=== PATIENT | male | born 1935 | race Caucasian/White ===

== ENCOUNTER 2019-03-27 06:43 | Outpatient (CLI) | payer MEDICARE, OTHER | END 2019-03-27 23:59 | disposition home or self-care (01) | LOC: CVU 06:43 | PROVIDERS: ATTEND Internal Medicine Cardiovascular Disease | DX: I08.3 Combined rheumatic disorders of mitral, aortic and tricuspid valves (principal); I65.23 Occlusion and stenosis of bilateral carotid arteries; E78.5 Hyperlipidemia, unspecified; I10 Essential (primary) hypertension; I63.9 Cerebral infarction, unspecified | CPT/HCPCS: 93306; 93880 ==

== ENCOUNTER 2019-04-14 06:23 | Day surgery (SDC) | payer MEDICARE, OTHER ==
[~2019-04-14] VITALS: Ht 170.2 cm; Wt 102.7 kg
[2019-04-14] MEDS ORDERED: PANT40TA5 PO (07:30)
[2019-04-14] MEDS ORDERED: MULT-658 PO (07:30)
[2019-04-14] MEDS ORDERED: DOCU-180 PO (07:30)
[2019-04-14] MEDS ORDERED: METO50TA82 PO (07:30)
[2019-04-14] MEDS ORDERED: ACET-76 PO (07:30)
[2019-04-14] MEDS ORDERED: CLOP75TA52 PO (07:30)
[2019-04-14] MEDS ORDERED: FINA5TAB4 PO (07:30)
[2019-04-14] MEDS ORDERED: ATOR20TA37 PO (07:30)
[2019-04-14] MEDS ORDERED: LORA-247 PO (07:30)
[2019-04-14] MEDS ORDERED: [UNRECOGNIZED DRUG - CODE] PO (07:30)
[2019-04-14 07:34] VITALS: BP 170/94
[2019-04-14 07:58] LABS: BASOPHILS # (AUTO) 0.03 x10^3/uL (0-0.1); BASOPHILS % (AUTO) 1 % (0-1); EOSINOPHILS # (AUTO) 0.06 x10^3/uL (0-0.4); EOSINOPHILS % (AUTO) 1 % (1-7); LYMPHOCYTES # (AUTO) 1.15 x10^3/uL (1-3.4); LYMPHOCYTES % (AUTO) 16 % (22-44); MD NO; MEAN CORPUSCULAR HEMOGLOBIN 30.3 pg (27.5-34.5); MEAN CORPUSCULAR HGB CONC 33.3 g/dL (33.2-36.2); MEAN CORPUSCULAR VOLUME 90.8 fL (81-97); MEAN PLATELET VOLUME 8.6 fL (7.4-10.4); MONOCYTES # (AUTO) 0.58 x10^3/uL (0.2-0.8); MONOCYTES % (AUTO) 8 % (2-9); NEUTROPHILS # (AUTO) 5.55 x10^3/uL (1.8-6.8); NEUTROPHILS % (AUTO) 75 % (42-75); PLATELET COUNT 218 x10^3/uL (130-400); RED BLOOD COUNT 5.58 x10^6/uL (4.38-5.82); RED CELL DISTRIBUTION WIDTH 14.1 % (9.4-14.8)
[2019-04-14 08:09] LABS: ALANINE AMINOTRANSFERASE 24 U/L (12-78); ALBUMIN 3.8 g/dL (3.4-5.0); ANION GAP 7 mmol/L (5-15); CALCIUM 9.3 mg/dL (8.5-10.1); CHLORIDE 108 mmol/L (98-107); CREATININE 0.97 mg/dL (0.7-1.3)
[2019-04-14 08:12] LABS: ALKALINE PHOSPHATASE 83 U/L (45-117); BILIRUBIN,TOTAL 0.7 mg/dL (0.2-1.0); TOTAL PROTEIN 7.1 g/dL (6.4-8.2)
[2019-04-14] MEDS ORDERED: MIDAZOLAM 1 MG/ML, 5ML ONE (09:00)
[2019-04-14] MEDS ORDERED: FENTANYL PF 100 MCG/2ML ONE (09:01)
[2019-04-14] MEDS ORDERED: VERAPAMIL 2.5 MG/ML, 2ML ONE (09:01)
[2019-04-14] MEDS ORDERED: HEPARIN 1,000 UNITS/ML, 10ML ONE (09:02)
[2019-04-14] MEDS ORDERED: LIDOCAINE-MPF 1%, 5ML ONE (09:02)
[2019-04-14] MEDS ORDERED: MIDAZOLAM 1 MG/ML, 2ML ONE ×2 (09:03→09:55)
[2019-04-14] MEDS ORDERED: NITROGLYCERIN 5 MG/ML, 10ML ONE (09:19)
[2019-04-14] MEDS ORDERED: TICAGRELOR 90 MG TABLET ONE (09:42)
[2019-04-14] MEDS ORDERED: BIVALIRUDIN 250 MG ONE (09:42)
[2019-04-14] MEDS ORDERED: SODIUM CHLORIDE 0.9% 1,000 ML IV SCH ×2 (10:18→11:00)
== END 2019-04-14 14:16 | disposition home or self-care (01) ==
LOC: CACL 06:23
PROVIDERS: ATTEND Internal Medicine Cardiovascular Disease
DX: I25.10 Atherosclerotic heart disease of native coronary artery without angina pectoris (principal); I25.82 Chronic total occlusion of coronary artery; I25.84 Coronary atherosclerosis due to calcified coronary lesion; I10 Essential (primary) hypertension; I47.1 Supraventricular tachycardia; I35.0 Nonrheumatic aortic (valve) stenosis; E78.2 Mixed hyperlipidemia; E66.01 Morbid (severe) obesity due to excess calories; Z68.35 Body mass index [BMI] 35.0-35.9, adult; Z79.01 Long term (current) use of anticoagulants; Z79.02 Long term (current) use of antithrombotics/antiplatelets; Z79.899 Other long term (current) drug therapy; Z86.73 Personal history of transient ischemic attack (TIA), and cerebral infarction without residual deficits; Z87.891 Personal history of nicotine dependence
CPT/HCPCS: 36415; 80053; 85025; 92920; 93458; 99156; 99157; C1769; C1887; C1894; J0583; J1644; J2250; J3010; Q9967; 93454

== ENCOUNTER 2019-05-03 09:53 | Observation (INO) | payer MEDICARE, OTHER ==
[~2019-05-03] VITALS: Ht 170.2 cm; Wt 102.7 kg
[~2019-05-03 09:53] MED LIST: ACET-76 PO; ATOR20TA37 PO; CLOP75TA52 PO; DOCU-180 PO; FINA5TAB4 PO; LORA-247 PO; METO50TA82 PO; MULT-658 PO; PANT40TA5 PO; [UNRECOGNIZED DRUG - CODE] PO
[2019-05-03] MEDS ORDERED: SODIUM CHLORIDE 0.9% 1,000 ML IV SCH (10:27)
[2019-05-03 10:36] VITALS: BP 153/76
[2019-05-03 11:14] LABS: BASOPHILS # (AUTO) 0.07 x10^3/uL (0-0.1); BASOPHILS % (AUTO) 1 % (0-1); EOSINOPHILS # (AUTO) 0.08 x10^3/uL (0-0.4); EOSINOPHILS % (AUTO) 1 % (1-7); LYMPHOCYTES # (AUTO) 1.35 x10^3/uL (1-3.4); LYMPHOCYTES % (AUTO) 19 % (22-44); MD NO; MEAN CORPUSCULAR HEMOGLOBIN 30.7 pg (27.5-34.5); MEAN CORPUSCULAR HGB CONC 33.7 g/dL (33.2-36.2); MEAN CORPUSCULAR VOLUME 91.1 fL (81-97); MEAN PLATELET VOLUME 8.6 fL (7.4-10.4); MONOCYTES # (AUTO) 0.63 x10^3/uL (0.2-0.8); MONOCYTES % (AUTO) 9 % (2-9); NEUTROPHILS # (AUTO) 4.82 x10^3/uL (1.8-6.8); NEUTROPHILS % (AUTO) 69 % (42-75); PLATELET COUNT 212 x10^3/uL (130-400); RED BLOOD COUNT 5.18 x10^6/uL (4.38-5.82); RED CELL DISTRIBUTION WIDTH 14.2 % (9.4-14.8)
[2019-05-03 11:19] LABS: ANION GAP 5 mmol/L (5-15); CALCIUM 9.1 mg/dL (8.5-10.1); CHLORIDE 107 mmol/L (98-107); CREATININE 1.15 mg/dL (0.7-1.3)
[2019-05-03] MEDS ORDERED: FENTANYL PF 100 MCG/2ML ONE (12:08)
[2019-05-03] MEDS ORDERED: VERAPAMIL 2.5 MG/ML, 2ML ONE (12:08)
[2019-05-03] MEDS ORDERED: TICAGRELOR 90 MG TABLET ONE (12:08)
[2019-05-03] MEDS ORDERED: MIDAZOLAM 1 MG/ML, 5ML ONE (12:08)
[2019-05-03] MEDS ORDERED: BIVALIRUDIN 250 MG ONE (12:08)
[2019-05-03] MEDS ORDERED: LIDOCAINE-MPF 1%, 5ML ONE (12:09)
[2019-05-03] MEDS ORDERED: HEPARIN 1,000 UNITS/ML, 10ML ONE (12:09)
[2019-05-03] MEDS: SODIUM CHLORIDE 0.9% 1,000 ML IV SCH ×2 (13:57→21:57)
[2019-05-03 19:22] VITALS: BP 144/90
[2019-05-03 20:56] VITALS: BP 148/77
[2019-05-03] MEDS: METOPROLOL TARTRATE 50 MG TABLET PO SCH (20:58)
[2019-05-03] MEDS: DOCUSATE 100 MG CAPSULE PO SCH (20:58)
[2019-05-03] MEDS: ACETAMINOPHEN 500 MG TABLET PO SCH (20:59)
[2019-05-03] MEDS ORDERED: ATORVASTATIN 20 MG TABLET PO SCH (21:00)
[2019-05-04 01:53] VITALS: BP 142/80
[2019-05-04] MEDS: SODIUM CHLORIDE 0.9% 1,000 ML IV SCH (04:25)
[2019-05-04 04:43] LABS: ANION GAP 6 mmol/L (5-15); CALCIUM 8.8 mg/dL (8.5-10.1); CHLORIDE 107 mmol/L (98-107); CREATININE 0.94 mg/dL (0.7-1.3)
[2019-05-04] MEDS: METOPROLOL TARTRATE 50 MG TABLET PO SCH (07:34)
[2019-05-04] MEDS: DOCUSATE 100 MG CAPSULE PO SCH (07:34)
[2019-05-04 07:40] VITALS: BP 147/73
[2019-05-04] MEDS: ACETAMINOPHEN 500 MG TABLET PO SCH (07:45)
[2019-05-04] MEDS ORDERED: LORATADINE 10 MG TABLET PO SCH (09:00)
[2019-05-04] MEDS ORDERED: FINASTERIDE 5 MG TABLET PO SCH (09:00)
[2019-05-04] MEDS ORDERED: ASPIRIN 81 MG TABLET EC PO SCH (09:00)
[2019-05-04] MEDS ORDERED: MULTIVITAMIN 1 TABLET PO SCH (09:00)
[2019-05-04] MEDS ORDERED: CLOPIDOGREL 75 MG TABLET PO SCH ×2 (09:00)
[2019-05-04] MEDS ORDERED: PANTOPROZOLE 40MG TABLET PO SCH (09:00)
[2019-05-04] MEDS ORDERED: ASPI81TA45 PO (10:09)
== END 2019-05-04 11:50 | disposition home or self-care (01) ==
LOC: CACL 09:53 → ORIP 13:57 → 5SO 15:09 → DCLOUNGE 05-04 11:26
PROVIDERS: ADMIT Internal Medicine Cardiovascular Disease; ATTEND Internal Medicine Cardiovascular Disease
DX: I35.0 Nonrheumatic aortic (valve) stenosis (principal); I25.10 Atherosclerotic heart disease of native coronary artery without angina pectoris; E66.01 Morbid (severe) obesity due to excess calories; Z79.01 Long term (current) use of anticoagulants
CPT/HCPCS: 36415; 80048; 85014; 85018; 85025; 93454; 99156; 99157; C1725; C1769; C1874; C1887; C1894; C9600; G0378; J0583; J2250; J3010; Q9967; 93458; J1644